=== PATIENT | female | born 1970 | race Caucasian/White ===

== ENCOUNTER 2021-09-19 10:20 | Emergency (ER) | payer BC ==
[~2021-09-19] VITALS: Ht 160 cm; Wt 74.8 kg
[2021-09-19] MEDS ORDERED: WELLBUTRIN SR100 MG (10:30)
[2021-09-19] MEDS ORDERED: HEALTHY HEART1 EACH (10:31)
[2021-09-19] MEDS ORDERED: AMBIEN CR6.25 MG (10:31)
[2021-09-19] MEDS ORDERED: VISTARIL25 MG (10:31)
[2021-09-19] MEDS ORDERED: B12 ACTIVE1000 MCG (10:31)
[2021-09-19] MEDS ORDERED: PAXIL20 MG (10:32)
[2021-09-19] MEDS ORDERED: DIVIGEL1 EACH (10:32)
== END 2021-09-19 13:46 | disposition home or self-care (01) ==
LOC: ER 10:20
DX: H10.9 Unspecified conjunctivitis (principal); H01.003 Unspecified blepharitis right eye, unspecified eyelid; H01.006 Unspecified blepharitis left eye, unspecified eyelid; Z20.822 Contact with and (suspected) exposure to COVID-19; I10 Essential (primary) hypertension